=== PATIENT | male | born 1955 | race Caucasian/White ===

== ENCOUNTER 2017-10-31 19:50 | Emergency (ER) | payer MEDICARE ==
--- NOTE | 2017-10-31 20:04 | ED Physician Documentation ---
General Adult - HISTORIAN Historian: patient - HPI Stated Complaint: intoxication Chief Complaint: Altered Mental Status Onset: hours (1) Timing: still present Severity: mild Further Comments: yes (per law enforcement he was arrested due [place] leave the [place] and [place]. He states he was drinking and he is intoxicated so he cannot go to senior care due to incoxication level. He states after intake he is going to kill himself and others - he states he knows how to kill himself and he knows how to kill others. He will not discuss the plan) Last known Well Code/Unknown Code: Unknown - ROS CONST: no problems CVS/RESP: denies: chest pain, shortness of breath, cough GI/: denies: vomiting, nausea MS/SKIN/LYMPH: none NEURO/PSYCH: denies: headache, fainting, dizziness, tingling - PAST HX Past History: other ("heart issues" ) Surgeries/Procedures: other (he is not sure ) Immunizations: UTD - SOCIAL HX Smoking History: cigarettes Alcohol Use: heavy Drug Use: none - FAMILY HX Family History: No - REVIEWED ASSESSMENTS Nursing Assessment Reviewed: Yes Vitals Reviewed: Yes <Mindy Robbins - Last Filed: 11/01/17 06:39> - VITAL SIGNS Vital Signs: Vital Signs Temp Pulse Resp BP Pulse Ox 101 H 20 129/84 96 10/31/17 19:55 10/31/17 19:55 10/31/17 19:55 10/31/17 19:55 <SPENSER SMALLWOOD - Last Filed: 11/01/17 13:32> - PAST HX Allergies/Adverse Reactions: Allergies Allergy/AdvReac Type Severity Reaction Status Date / Time aspirin Allergy Verified 10/31/17 20:23 Home Medications: Ambulatory Orders Medication Instructions Recorded Potassium Chloride 20 meq PO QDAY 10/31/17 Progress - Progress Progress: 2124: discussed case with Dr Garcia at [facility] and she will overview case to see about admission DG 2230: resting in the bed. Fax sent to [facility] awaiting call DG 2310: sleeping in bed. No signs of pain. [facility] physician line DG 0100: Dr [facility] returned call and states once blood alcohol level is 150 or lower return lab to fax and call for update on possible acceptance DG 0200: resting in bed DG 0600: resting quietly in bed DG <Mindy Robbins - Last Filed: 11/01/17 06:39> - Progress Progress: 0700 Assumed care of patient. Additional 1L NS given; will recheck ETOH level at 0800. Patient calm and cooperative at presents. 0900 ETOH down to 129; [facility] 1100 Patient cannot recall events from last night. Denies suicidal thoughts or homicidal thoughts. States he got kicked out of the [employer] for drinking and fighting with another tenant. Reports "years" of drinking, "I'm an alcoholic". Reports drinking a multiple days a week; denies drinking daily. Refuses inpatient psychiatric treatment at this time. [facility]. [facility] at [facility] on the second floor of the [facility]. 1230 ambulatory services representative consult - patient continues to denie any suicidal thoughts or homicidal ideas. Agrees to go to [facility] clinic. 1315 Reviewed discharge instructions with patient; strongly encouraged to go directly to [facility]. Verbalized understanding. <SPENSER SMALLWOOD - Last Filed: 11/01/17 13:32> ED Results Lab/Radiology - Orders Orders: ED Orders Category Date Time Status ALCOHOL MEDICAL USE ONLY Routine Lab 10/31/17 Ordered CBC/PLATELET/DIFF Routine Lab 10/31/17 Ordered CMP Routine Lab 10/31/17 Ordered DRUG SCREEN URINE MEDICAL ONLY Routine Lab 10/31/17 Ordered MAGNESIUM Routine Lab 10/31/17 Ordered URINALYSIS Routine Lab 10/31/17 Ordered Thiamine HCl 100 mg Med 10/31/17 21:00 Ordered Multivit Infusn,Adult 1,Vit K [M.v.i. Adult] 10 ml Folic Acid [Folvite] 5 mg 0.9 % Sodium Chloride [Normal Saline] 1,000 ml IV Q8 EKG WITH COMPARISON Stat Ther 10/31/17 Ordered <Mindy Robbins - Last Filed: 11/01/17 06:39> - Lab Results Lab Results: Lab Results 11/01/17 11/01/17 10/31/17 04:46 00:28 20:05 WBC 5.90 K/ul K/ul (4.00-12.00) RBC 4.32 M/ul M/ul (3.90-5.20) Hgb 14.6 g/dL g/dL (12.0-18.0) Hct 42.4 % % (37.0-53.0) MCV 98.0 fl fl (80.0-100.0) MCH 33.7 pg pg (28.0-34.0) MCHC 34.4 g/dL g/dL (30.0-36.0) RDW 14.9 % H % (11.3-14.3) Plt Count 124 K/mm3 L K/mm3 (130-400) Neut % (Auto) 42.9 % % (39.0-79.0) Lymph % (Auto) 42.3 % % (16.0-50.0) Hickman % (Auto) 5.5 % % (0.0-11.0) Eos % (Auto) 4.0 % % (0.0-6.8) Baso % (Auto) 1.6 H (0.0-1.5) Neut # (Auto) 2.5 # k/uL # k/uL (1.4-7.7) Lymph # (Auto) 2.5 # k/uL # k/uL (0.6-4.0) Hickman # (Auto) 0.3 # k/uL # k/uL (0.0-0.9) Eos # (Auto) 0.2 # k/uL # k/uL (0.0-0.6) Baso # (Auto) 0.1 # k/uL # k/uL (0.0-0.5) Reactive Lymphs % 3.6 % % (0.0-5.0) Reactive Lymphs # 0.2 # k/uL # k/uL (0.0-0.8) Sodium 147 mmol/L H mmol/L (136-145) Potassium 3.5 mmol/L mmol/L (3.5-5.1) Chloride 112 mmol/L H mmol/L (98-107) Carbon Dioxide 26 mmol/L mmol/L (22-30) BUN 15 mg/dL mg/dL (9-20) Creatinine 0.80 mg/dL mg/dL (0.66-1.25) Estimated Creat Clear 94 Est GFR ( Amer) > 60 (60 - ) Est GFR (Non-Af Amer) > 60 (60 - ) Glucose 114 mg/dL H mg/dL (74-106) Calcium 8.7 mg/dL mg/dL (8.4-10.2) Total Bilirubin 0.4 mg/dL mg/dL (0.2-1.3) AST 185 U/L H U/L (15-46) ALT 158 U/L H U/L (13-69) Alkaline Phosphatase 69 U/L U/L (38-126) Total Protein 6.3 g/dL g/dL (6.3-8.2) Albumin 3.0 g/dL L g/dL (3.5-5.0) Ethyl Alcohol 203.2 mg/dL H mg/dL (0.0-10.0) 10/31/17 10/31/17 20:04 00:05 WBC RBC Hgb Hct MCV MCH MCHC RDW Plt Count Neut % (Auto) Lymph % (Auto) Hickman % (Auto) Eos % (Auto) Baso % (Auto) Neut # (Auto) Lymph # (Auto) Hickman # (Auto) Eos # (Auto) Baso # (Auto) Reactive Lymphs % Reactive Lymphs # Sodium 150 mmol/L H mmol/L (136-145) Potassium 3.7 mmol/L mmol/L (3.5-5.1) Chloride 113 mmol/L H mmol/L (98-107) Carbon Dioxide 25 mmol/L mmol/L (22-30) BUN 16 mg/dL mg/dL (9-20) Creatinine 0.90 mg/dL mg/dL (0.66-1.25) Estimated Creat Clear 83 Est GFR ( Amer) > 60 (60 - ) Est GFR (Non-Af Amer) > 60 (60 - ) Glucose 161 mg/dL H mg/dL (74-106) Calcium 9.5 mg/dL mg/dL (8.4-10.2) Total Bilirubin 0.6 mg/dL mg/dL (0.2-1.3) AST 225 U/L H U/L (15-46) ALT 185 U/L H U/L (13-69) Alkaline Phosphatase 72 U/L U/L (38-126) Total Protein 7.4 g/dL g/dL (6.3-8.2) Albumin 3.6 g/dL g/dL (3.5-5.0) Ethyl Alcohol 330.0 mg/dL H mg/dL 300.3 mg/dL H mg/dL (0.0-10.0) (0.0-10.0) - Orders Orders: ED Orders Category Date Time Status ALCOHOL MEDICAL USE ONLY Routine Lab 10/31/17 20:04 Completed ALCOHOL MEDICAL USE ONLY Stat Lab 10/31/17 00:05 Completed ALCOHOL MEDICAL USE ONLY Stat Lab 11/01/17 04:46 Completed ALCOHOL MEDICAL USE ONLY Urgent Lab 11/01/17 08:00 Received CBC/PLATELET/DIFF Routine Lab 10/31/17 20:05 Completed CMP Routine Lab 10/31/17 20:04 Completed CMP Stat Lab 11/01/17 00:28 Completed DRUG SCREEN URINE MEDICAL ONLY Routine Lab 10/31/17 Ordered MAGNESIUM Routine Lab 10/31/17 20:04 Received URINALYSIS Routine Lab 10/31/17 Ordered 0.9 % Sodium Chloride [Normal Saline] 1,000 ml Med 10/31/17 20:13 Discontinued IV .STK-MED 0.9 % Sodium Chloride [Normal Saline] 1,000 ml Med 11/01/17 07:05 Discontinued IV NOW 0.9 % Sodium Chloride [Normal Saline] 1,000 ml Med 10/31/17 23:42 Discontinued IV Q1H Folic Acid [Folvite] Med 10/31/17 20:13 Discontinued 5 mg .ROUTE .STK-MED ONE Multivit Infusn,Adult 1,Vit K [M.v.i. Adult] Med 10/31/17 20:13 Discontinued 10 ml IV .STK-MED ONE Thiamine HCl Med 10/31/17 20:13 Discontinued 200 mg .ROUTE .STK-MED ONE Thiamine HCl 100 mg Med 10/31/17 21:00 Ordered Multivit Infusn,Adult 1,Vit K [M.v.i. Adult] 10 ml Folic Acid [Folvite] 5 mg 0.9 % Sodium Chloride [Normal Saline] 1,000 ml IV Q8 EKG WITH COMPARISON Stat Ther 10/31/17 Ordered <SPENSER SMALLWOOD - Last Filed: 11/01/17 13:32> General Adult Physical Exam - PHYSICAL EXAM GENERAL APPEARANCE: no distress EENT: eye inspection normal, ENT inspection normal, MYRTLE NECK: normal inspection, thyroid normal, supple RESPIRATORY: no resp distress, chest non-tender, breath sounds normal CVS: reg rate & rhythm, heart sounds normal, equal pulses, no murmur ABDOMEN: soft, no organomegaly, normal bowel sounds, no distension BACK: normal inspection, no CVA tenderness SKIN: warm/dry, normal color EXTREMITIES: non-tender, normal range of motion, no evidence of injury NEURO: oriented X3, mood/affect nml <Mindy Robbins - Last Filed: 11/01/17 06:39> Discharge <Mindy Robbins - Last Filed: 11/01/17 06:39> Decision to Admit: NO Decision Time: 12:59 <SPENSER SMALLWOOD - Last Filed: 11/01/17 13:32> Clincal Impression: Alcohol abuse, Elevated LFTs, Intoxication Referrals: Primary Doctor,No [Primary Care Provider] - 2 Days Additional Instructions: Go directly to the [facility] on the second floor of the [facility] - they will see you as soon as you get there. They have individual, group and recreational therapy, resources for housing, and vocational rehabilitation If you have thoughts of hurting yourself or someone else; return to the Emergency Room. Condition: Stable Disposition: 01 HOME, SELF-CARE
[2017-10-31 20:17] LABS: BASOPHILS % 1.6 (0.0-1.5); MEAN CORPUSCULAR HEMOGLOBIN 33.7 pg (28.0-34.0); MONOCYTES % 5.5 % (0.0-11.0); NEUTROPHILS # 2.5 # k/uL (1.4-7.7)
[2017-10-31] MEDS: THIAMINE HCL 100 MG, MULTIVIT INFUSN,ADULT 1,VIT K 10 ML, FOLIC ACID 5 MG in 0.9 % SODI... IV SCH (20:19)
[2017-10-31] MEDS: 0.9 % SODIUM CHLORIDE 1,000 ML IV ONE (20:20)
[2017-10-31] MEDS: THIAMINE HCL 100 MG/ML 2ML VIAL ONE (20:20)
[2017-10-31] MEDS: FOLIC ACID 5 MG/1 ML ONE (20:20)
[2017-10-31] MEDS: MULTIVIT INFUSN,ADULT 1,VIT K 10 ML VIAL IV ONE (20:20)
[2017-10-31 20:26] LABS: eGFR (African) > 60; eGFR (Non-African) > 60
[2017-11-01] MEDS: 0.9 % SODIUM CHLORIDE 1,000 ML IV ONE ×2 (00:30→07:10)
[2017-11-01 00:39] LABS: eGFR (African) > 60; eGFR (Non-African) > 60
[2017-11-01 11:11] LABS: APPEARANCE,URINE CLEAR (CLEAR); COLOR,URINE AMBER (YELLOW); OCCULT BLOOD,URINE NEGATIVE (NEGATIVE)
[2017-11-01 11:12] LABS: CANNABINOIDS NEGATIVE ng/mL (< 50); METHYLENEDIOXYMETHAMPHETAMINE NEGATIVE ng/mL (<500)
[2017-11-01 16:03] VITALS: BP 132/74
== END 2017-11-01 13:05 | disposition home or self-care (01) ==
LOC: ED 19:50
DX: F10.129 Alcohol abuse with intoxication, unspecified (principal); R94.5 Abnormal results of liver function studies
CPT/HCPCS: 80053; 81002; 83735; 85025; G0480; G0481; J3411; J3490; J7030; 80320; 80377; 96365; 96366; 96367; 99284; S1016